=== PATIENT | male | born 1960 | race Caucasian/White ===

== ENCOUNTER 2021-10-13 14:15 | Emergency (ER) | payer BC ==
[2021-10-13 15:08] VITALS: BP 172/110; PULSE 74; TEMP 98.4
[2021-10-13 15:10] VITALS: BMI 26.7
[2021-10-14 16:07] LABS: SARS-CoV-2 NAA Not Detected (Not Detected)
== END 2021-10-13 15:19 | disposition home or self-care (01) ==
LOC: FER 14:15
DX: R05.1 Acute cough (principal); J02.9 Acute pharyngitis, unspecified; R68.83 Chills (without fever)
CPT/HCPCS: 99283-25; C9803; U0003; U0005

== ENCOUNTER 2021-10-30 14:02 | Emergency (ER) | payer BC, OTHER ==
[2021-10-30] MEDS ORDERED: IBUPROFEN 400 MG TABLET (FP) PO ONE ×2 (14:08→14:23)
[2021-10-30 14:30] VITALS: BP 134/74; PULSE 85; TEMP 98.9; BMI 27.8
== END 2021-10-30 16:06 | disposition home or self-care (01) ==
LOC: FER 14:02
DX: M54.2 Cervicalgia (principal)
CPT/HCPCS: 72125-TC; 99284-25